=== PATIENT | female | born 1955 | race African-American/Black ===

== ENCOUNTER 2023-01-20 17:52 | Emergency (ER) | payer MEDICARE ==
[~2023-01-20] VITALS: Ht 152.4 cm; Wt 59.0 kg
[2023-01-20] MEDS ORDERED: ACETAMINOPHEN 325MG TABLET PO STA (19:04)
[2023-01-20] MEDS ORDERED: ONDANSETRON HCL 4MG/2ML INJ IV STA (19:04)
[2023-01-20] MEDS ORDERED: SODIUM CHLORIDE 0.9% 1,000 ML IV ONE (19:15)
[2023-01-20 19:37] LABS: BASOPHILS % 0.2 % (0.0-2.0); HEMATOCRIT. 44.1 % (36.0-48.0); HEMOGLOBIN. 14.6 g/dL (12.0-16.0); LYMPHOCYTES % 14.3 % (20.0-50.0); MEAN CORPUSCULAR HEMOGLOBIN 31.1 pg (28.0-32.0); MEAN CORPUSCULAR VOLUME 93.8 fL (81.0-99.0); MEAN PLATELET VOLUME 9.3 fl (7.4-10.4); MONOCYTES % 2.6 % (2.0-8.0); NEUTROPHILS % 82.9 % (40.0-76.0); PLATELET 234 x1000/uL (130-400)
[2023-01-20 19:48] LABS: CHLORIDE 100 mEq/L (98-107)
[2023-01-20 21:47] LABS: CLARITY URINE CLEAR (CLEAR); COLOR URINE DARK YELLOW (YELLOW); KETONES URINE NEGATIVE (NEGATIVE); LEUKOCYTE ESTERASE URINE NEGATIVE (NEGATIVE); NITRITE URINE NEGATIVE (NEGATIVE); OCCULT BLOOD URINE 3+ (NEGATIVE); PROTEIN URINE 2+ (NEGATIVE); SPECIFIC GRAVITY URINE 1.014 (1.005-1.030)
[2023-01-20] MEDS ORDERED: CLONIDINE 0.1MG TABLET PO SCH (23:30)
[2023-01-20] MEDS ORDERED: ONDANSETRON HCL 4MG/2ML INJ IV PRN (23:30)
[2023-01-21] MEDS ORDERED: CLONIDINE 0.1MG TABLET PO PRN (01:15)
[2023-01-21] MEDS ORDERED: GUAIFENESIN 200MG/10ML SUGAR FREE UDC PO PRN (01:15)
[2023-01-21] MEDS ORDERED: ONDANSETRON HCL 4MG/2ML INJ IV PRN (01:15)
[2023-01-21] MEDS ORDERED: ACETAMINOPHEN 325MG TABLET PO PRN (01:15)
[2023-01-21] MEDS ORDERED: IPRATROPIUM/ALBUTEROL 0.5-3(2.5)MG/3ML NEB HHN PRN (01:15)
[2023-01-21] MEDS ORDERED: DOCUSATE SODIUM 100MG CAPSULE PO PRN (01:15)
[2023-01-21] MEDS ORDERED: HYDRALAZINE 20MG/ML VIAL IV PRN (01:15)
[2023-01-21] MEDS ORDERED: SODIUM CHLORIDE 0.9% 1,000 ML IV SCH (01:15)
[2023-01-21 04:00] VITALS: BP 159/75
[2023-01-21] MEDS ORDERED: PANTOPRAZOLE 40MG DR TABLET PO SCH (07:50)
== END 2023-01-21 06:53 | disposition left against medical advice (07) ==
LOC: ER 17:52 → EDBEDREQ 01-21 01:41 → EDBEDREQDT 01-21 01:41 → EDBEDREQSVC 01-21 01:41 → EDBEDREQTM 01-21 01:41 → ER 01-21 06:53 → SUPCPDRO 01-21 07:34
DX: R10.9 Unspecified abdominal pain (principal); R51.9 Headache, unspecified
CPT/HCPCS: 36415; 70450; 71045; 74176; 80053; 81003; 83605; 83690; 84484; 85025; 93005; 96361; 96374; 99285; J0360; J2405; J7030